=== PATIENT | male | born 1955 | race Caucasian/White ===

== ENCOUNTER 2017-01-11 10:05 | Day surgery (SDC) | payer OTHER ==
[2017-01-11] VITALS (7 sets, daily range): BP systolic 99–151; BP diastolic 60–92; PULSE 70–79; TEMP 97–97.8
[~2017-01-11] VITALS: Ht 177.8 cm; Wt 129.6 kg
[~2017-01-11 10:05] MED LIST: ACTOS30 MG PO; BYETTA SC; D-31000 IU PO; DEPO-TESTOS200 MG/M1 IM; FENOGLIDE40 MG PO; LEVITRA20 MG PO; LISINOPRIL20 MG PO; MAG-OX 400400 MG PO; OMEGA 31000 MG PO; PLENDIL2.5 MG PO; PRILOSEC 20MG20 MG PO; ZETIA 10MG TAB10 MG PO; ZYLOPRIM 100MG100 MG PO
[2017-01-11] MEDS ORDERED: ZYLOPRIM 100MG100 MG PO (10:58)
[2017-01-11] MEDS ORDERED: COLACE 100100 MG/CAP PO (10:59)
[2017-01-11] MEDS ORDERED: CAPSICUM OLEORE (10:59)
[2017-01-11] MEDS ORDERED: LOPID 600M600 MG/TAB PO (11:00)
[2017-01-11] MEDS ORDERED: NIZORAL CREAM15 GM TP (11:01)
[2017-01-11] MEDS ORDERED: DIABETA1.25 MG PO (11:01)
[2017-01-11] MEDS ORDERED: LANTUS100 U/ML SQ (11:02)
[2017-01-11] MEDS ORDERED: PRINIVIL20 MG PO (11:02)
[2017-01-11] MEDS ORDERED: MAG-OX 400400 MG/TAB PO (11:04)
[2017-01-11] MEDS ORDERED: GLUCOPHAGE1000 MG PO (11:04)
[2017-01-11] MEDS ORDERED: NAFTIN11 TP (11:05)
[2017-01-11] MEDS ORDERED: PRAVACHOL80 MG PO (11:06)
[2017-01-11] MEDS ORDERED: NOVOLOG FLEX100 U/ML SQ (11:06)
[2017-01-11] MEDS ORDERED: [UNRECOGNIZED DRUG - OTHER] TP (11:07)
[2017-01-11] MEDS ORDERED: ASPIRIN 81M81 MG/TA2 PO (11:08)
[2017-01-11] MEDS ORDERED: DEPO-TESTOS100 MG/ML IM (11:09)
== END 2017-01-11 13:27 | disposition home or self-care (01) ==
LOC: SDCO 10:05
DX: K22.2 Esophageal obstruction (principal); B96.81 Helicobacter pylori [H. pylori] as the cause of diseases classified elsewhere; K44.9 Diaphragmatic hernia without obstruction or gangrene; K21.0 Gastro-esophageal reflux disease with esophagitis; K26.7 Chronic duodenal ulcer without hemorrhage or perforation; R13.12 Dysphagia, oropharyngeal phase; E11.9 Type 2 diabetes mellitus without complications; I10 Essential (primary) hypertension; E78.00 Pure hypercholesterolemia, unspecified; Z87.891 Personal history of nicotine dependence
CPT/HCPCS: OP; C1726; J2250; J3010; J7030

== ENCOUNTER → 2019-03-09 | Outpatient (CLI) | payer OTHER ==
[~2019-03-09] MED LIST changes: +ASPIRIN 81M81 MG/TA2 PO; +CAPSICUM OLEORE; +COLACE 100100 MG/CAP PO; +DEPO-TESTOS100 MG/ML IM; +DIABETA1.25 MG PO; +GLUCOPHAGE1000 MG PO; +LANTUS100 U/ML SQ; +LOPID 600M600 MG/TAB PO; +MAG-OX 400400 MG/TAB PO; +NAFTIN11 TP; +NIZORAL CREAM15 GM TP; +NOVOLOG FLEX100 U/ML SQ; +PRAVACHOL80 MG PO; +PRINIVIL20 MG PO; +[UNRECOGNIZED DRUG - OTHER] TP
== END ==
LOC: COL.RAD 12:51
DX: E29.1 Testicular hypofunction (principal)